=== PATIENT | female | born 1985 | race American Indian/Alaskan Native ===

== ENCOUNTER 2016-09-05 11:48 | Emergency (ER) | payer MEDICAID ==
[2016-09-05 15:55] VITALS: BP 124/78
[2016-09-05 16:11] LABS: Bilirubin,Urine NEG (Negative); Blood,Urine NEG (Negative); Ketones,Urine NEG (Negative); Leukocyte Esterase,Urine NEG (Negative); Mucus,Urine 1+ /HPF; Nitrite,Urine NEG (Negative); Protein,Urine <15 mg/dL mg/dL (Negative); Urobilinogen,Urine < 2.0 mg/dL (<2.0)
--- NOTE | 2016-09-05 17:12 | Emergency Department Report ---
ED Female HPI - General Chief complaint: Urogenital-Female Stated complaint: ITCHING AND BURNING Time Seen by Provider: 09/05/16 14:17 Source: patient Mode of arrival: Ambulatory Limitations: No Limitations - History of Present Illness Initial comments: Patient is a 30-year-old female who presents due to vaginal itching and burning times one week. Patient denies any dysuria, hematuria or frequency. Patient denies any abdominal pain, nausea, vomiting or diarrhea. Patient states that she notices a white cheeselike discharge when she wipes. Patient states her last menstrual period was 07/31/16 MD Complaint: vaginal discharge, other (vaginal irritation) Onset/Timin -: week(s) Location: other (vagina) Radiation: non-radiating Severity: moderate Quality: burning Consistency: intermittent Improves with: none Worsens with: none Are you Now?: No Last Menstrual Period: 07/31/16 EDC: 05/07/17 Associated Symptoms: vaginal discharge. denies: vaginal bleeding, abdominal pain, nausea/vomiting, fever/chills - Related Data Sexually active: Yes : 3 Para: 3 A: 0 Previous Rx's Medication Instructions Recorded Last Taken Type Fluconazole [Diflucan TAB] 150 mg PO ONCE #1 tablet 09/05/16 Unknown Rx metroNIDAZOLE 0.75% [Vandazole 1 applicator VG QHS #1 tube 09/05/16 Unknown Rx 0.75% VAGINAL] Allergies Allergy/AdvReac Type Severity Reaction Status Date / Time No Known Allergies Allergy Unverified 09/05/16 12:34 ED Review of Systems ROS: Stated complaint: ITCHING AND BURNING Other details as noted in HPI Comment: All other systems reviewed and negative Constitutional: no symptoms reported. denies: chills, diaphoresis, fever, malaise ENT: denies: ear pain, throat pain, dental pain Respiratory: no symptoms reported. denies: cough, orthopnea, shortness of breath, SOB with exertion, SOB at rest, stridor, wheezing Cardiovascular: denies: chest pain, palpitations, dyspnea on exertion, orthopnea , edema, syncope Gastrointestinal: denies: abdominal pain, nausea, vomiting, diarrhea, constipation, hematemesis, melena Genitourinary: discharge, other (vaginal irritation). denies: urgency, dysuria , frequency, hematuria, abnormal menses, dyspareunia Musculoskeletal: denies: back pain, joint swelling, arthralgia Skin: denies: rash Neurological: denies: headache, numbness, paresthesias ED Past Medical Hx - Past Medical History Previous Medical History?: No - Surgical History Past Surgical History?: Yes Additional Surgical History: C SECTION X3 - Social History Smoking Status: Current Every Day Smoker Substance Use Type: Alcohol, Marijuana - Medications Home Medications: Home Medications Medication Instructions Recorded Confirmed Last Taken Type Fluconazole [Diflucan TAB] 150 mg PO ONCE #1 tablet 09/05/16 Unknown Rx metroNIDAZOLE 0.75% [Vandazole 1 applicator VG QHS #1 tube 09/05/16 Unknown Rx 0.75% VAGINAL] ED Physical Exam - General Limitations: No Limitations General appearance: alert, in no apparent distress - Head Head exam: Present: atraumatic, normocephalic, normal inspection - Eye Eye exam: Present: normal appearance, PERRL, EOMI Pupils: Present: normal accommodation - ENT ENT exam: Present: normal exam, normal orophraynx - Neck Neck exam: Present: normal inspection - Respiratory Respiratory exam: Present: normal lung sounds bilaterally - Cardiovascular Cardiovascular Exam: Present: regular rate, normal rhythm, normal heart sounds - GI/Abdominal GI/Abdominal exam: Present: soft. Absent: distended, tenderness - External exam: Present: normal external exam. Absent: erythema, swelling, lesions, lacerations, ecchymosis, bleeding Speculum exam: Present: vaginal discharge (white vaginal discharge, cottage cheeselike.), cervical discharge. Absent: vaginal bleeding, foreign body, tissue, laceration Bi-manual exam: Present: normal bi-manual exam. Absent: cervical motion tendernes, adnexal tenderness, adnexal mass, uterine enlargement, uterine tenderness - Extremities Exam Extremities exam: Present: normal inspection, full ROM, normal capillary refill. Absent: tenderness - Back Exam Back exam: Present: normal inspection, full ROM - Neurological Exam Neurological exam: Present: alert, oriented X3, normal gait - Psychiatric Psychiatric exam: Present: normal affect, normal mood ED Course Vital Signs 09/05/16 09/05/16 12:35 15:54 Temperature 98.1 F 99.8 F H Pulse Rate 76 89 Respiratory 18 16 Rate Blood Pressure 122/84 Blood Pressure 124/78 [Left] O2 Sat by Pulse 100 100 Oximetry ED Medical Decision Making - Medical Decision Making She was in no acute distress, during exam patient had white cottage cheese like discharge. Wet prep showed yeast, greater than 20% clue cells, no Trichomonas. Urine test was negative, urinalysis was normal Patient was discharged with a prescription for MetroGel and Diflucan. Patient was told to follow-up with her primary care provider. - Differential Diagnosis Kellie vaginitis, bacterial vaginosis, cervicitis Critical care attestation.: If time is entered above; I have spent that time in minutes in the direct care of this critically ill patient, excluding procedure time. ED Disposition Clinical Impression: Kellie vaginitis, Bacterial vaginitis Disposition: DISCHARGED TO HOME OR SELFCARE Is pt being admited?: No Does the pt Need Aspirin: No Condition: Good Instructions: Bacterial Vaginosis (ED), Vulvovaginal Candidiasis (ED) Additional Instructions: Apply MetroGel intravaginally at night time for 5 days, take Diflucan 1 tablet once, you can take second dose of Diflucan if vaginal irritation reoccurs after using MetroGel. Follow up with the [facility] for any complications. Prescriptions: metroNIDAZOLE 0.75% [Vandazole 0.75% VAGINAL] 1 applicator VG QHS #1 tube Fluconazole [Diflucan TAB] 150 mg PO ONCE #1 tablet Referrals: PRIMARY CARE, [Primary Care Provider] - 3-5 Days [facility] [Provider Group] - 3-5 Days Forms: STI Treatment and Prevention Time of Disposition: 17:12
== END 2016-09-05 17:20 | disposition home or self-care (01) ==
LOC: ED 11:48
DX: B37.3 Candidiasis of vulva and vagina (principal); F12.10 Cannabis abuse, uncomplicated; F17.200 Nicotine dependence, unspecified, uncomplicated
CPT/HCPCS: 81001; 81025; 87210; 87591; 99284